=== PATIENT | female | born 1990 | race African-American/Black ===

== ENCOUNTER 2018-07-27 13:11 | Emergency (ER) | payer MEDICAID ==
[~2018-07-27] VITALS: Ht 162.6 cm; Wt 82.0 kg
[2018-07-27 14:51] LABS: CLARITY URINE CLEAR (CLEAR); COLOR URINE YELLOW (YELLOW); KETONES URINE NEGATIVE (NEGATIVE); LEUKOCYTE ESTERASE URINE NEGATIVE (NEGATIVE); NITRITE URINE NEGATIVE (NEGATIVE); OCCULT BLOOD URINE NEGATIVE (NEGATIVE); PH URINE 7.5 (4.5-8.0); PROTEIN URINE NEGATIVE (NEGATIVE); SPECIFIC GRAVITY URINE 1.017 (1.005-1.030); UROBILINOGEN URINE 0.2 E.U./dL (0.2-1.0)
[2018-07-27 15:08] LABS: BASOPHILS % 0.7 % (0.0-2.0); EOSINOPHILS % 8.5 % (0.0-5.0); HEMATOCRIT. 37.9 % (36.0-48.0); HEMOGLOBIN. 12.6 g/dL (12.0-16.0); LYMPHOCYTES % 39.1 % (20.0-50.0); MEAN CORPUSCULAR HEMOGLOBIN 29.4 pg (28.0-32.0); MEAN CORPUSCULAR VOLUME 88.2 fL (81.0-99.0); MEAN PLATELET VOLUME 9.2 fl (7.4-10.4); MONOCYTES % 8.3 % (2.0-8.0); NEUTROPHILS % 43.4 % (40.0-76.0); PLATELET 191 x1000/uL (130-400); RED CELL DISTRIBUTION WIDTH 12.6 % (11.6-14.6)
[2018-07-27 15:12] LABS: CHLORIDE 109 mEq/L (98-107)
[2018-07-27] MEDS ORDERED: KETOROLAC 60MG/2ML VIAL IM ONE (17:45)
[2018-07-27 18:20] VITALS: BP 163/94
== END 2018-07-27 18:20 | disposition home or self-care (01) ==
LOC: ER 13:11
DX: R10.2 Pelvic and perineal pain (principal); F12.10 Cannabis abuse, uncomplicated; Z87.891 Personal history of nicotine dependence
CPT/HCPCS: 36415; 80053; 81003; 81025; 85025; 96372; 99283; J1885

== ENCOUNTER 2018-11-01 09:49 | Emergency (ER) | payer MEDICAID, OTHER ==
[~2018-11-01] VITALS: Ht 162.6 cm; Wt 90.0 kg
[2018-11-01 11:07] VITALS: BP 126/93
[2018-11-01] MEDS ORDERED: IBUPROFEN 600MG TABLET PO ONE (11:15)
== END 2018-11-01 12:01 | disposition home or self-care (01) ==
LOC: ER 09:49
DX: S60.211A Contusion of right wrist, initial encounter (principal); M54.2 Cervicalgia; F17.200 Nicotine dependence, unspecified, uncomplicated; V49.59XA Passenger injured in collision with other motor vehicles in traffic accident, initial encounter; Y93.89 Activity, other specified; Y92.89 Other specified places as the place of occurrence of the external cause; Y99.8 Other external cause status
CPT/HCPCS: 73110; 81025; 99283

== ENCOUNTER 2021-04-30 10:00 | Emergency (ER) | payer SELFPAY ==
[~2021-04-30] VITALS: Ht 162.6 cm; Wt 79.0 kg
[2021-04-30] MEDS ORDERED: NAPR-1176 MT (10:28)
[2021-04-30] MEDS ORDERED: IBUPROFEN 800MG TABLET PO ONE (10:30)
[2021-04-30 10:49] VITALS: BP 115/63
== END 2021-04-30 11:45 | disposition home or self-care (01) ==
LOC: ER 11:43
DX: M25.532 Pain in left wrist (principal); X50.0XXA Overexertion from strenuous movement or load, initial encounter; Y93.89 Activity, other specified; Y92.89 Other specified places as the place of occurrence of the external cause; Y99.8 Other external cause status
CPT/HCPCS: 29125; 81025; 99283